=== PATIENT | male | born 2000 | race Caucasian/White ===

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

== ENCOUNTER 2022-03-09 13:33 | Observation (INO) | payer MEDICAID, SELFPAY ==
[2022-03-09 13:34] VITALS: BP 163/108; PULSE 108; RESP 16; TEMP 36.5; O2SAT 97; BMI 26.0
--- NOTE | 2022-03-09 14:08 | EKG12_ITS ---
Test Reason : HEROIN Blood Pressure : / mmHG Vent. Rate : 111 BPM Atrial Rate : 111 BPM P-R Int : 130 ms QRS Dur : 084 ms QT Int : 334 ms P-R-T Axes : 054 037 046 degrees QTc Int : 454 ms Sinus tachycardia Otherwise normal ECG Confirmed by RAKAN VANG, CARO ([id number]), design editor KIKI CRISOSTOMO ([id number]) on 03/11/2022 11:02:25 A M Referred By: Confirmed By:SENG BLEDSOE MD
--- NOTE | 2022-03-09 14:36 | EDS_ITS ---
HPI History of Present Illness Chief Complaint: Substance Abuse Detail of Chief Complaint: Open it use and dependency Informant: patient Onset/Context/Timing Onset: Month(s) (6 months) Context: Sudden Onset Timing: Continuous Quality: Approximately half a gram of heroin snorted daily and for Oxy tablets Current Severity: No withdrawal symptoms presently Worsened by: Abstaining and attempting to stop on his own Relieved by: Resuming Associated Symptoms Associated Symptoms: Patient does report shakes feeling warm tachycardia nausea when he abstains Narrative Narrative: Patient is a 21-year-old male 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 He is performance at work has been hampered by his drug use. He does admit to taking fake Oxy blue pills and heroin. He believes the oxycodone ta blets are fentanyl. He snorts. He does not inject. He states he is never injected. He states he does not have hepatitis and has no risk factors for HIV. Presently has no symptoms. Prior similar symptoms: Yes Recent Illness/Hospitalization: No PFSH PFSH Medical History Anxiety Drug use Home Medications NK 03/09/22 [History Last Taken Unknown] Allergy/AdvReac Type Severity Reaction Status Date / Time No Known Allergies Allergy Verified 03/09/22 13:33 Surgical History no surgical history no surgical history Social History (Updated 03/09/22 @ 14:[address] Parag Pierre MD) household members: other Smoking Status: Current every day smoker tobacco type: cigarettes and e- cigarettes alcohol intake: current alcohol intake frequency: holidays/special occasions only substance use type: heroin and opiates ROS ROS ED Constitutional Constitutional ED: Denies chills, fever(s), subjective, sweats or weight loss Eyes Eyes: Denies blurry vision, change in vision or diplopia ENT ENT ED: Denies ear pain, rhinorrhea or sore throat Cardiovascular Cardiovascular: Denies chest pain, orthopnea, palpitations, paroxysmal nocturnal dyspnea or racing heartbeat Respiratory/Chest Respiratory/Chest: Denies cough, dyspnea, dyspnea on exertion, orthopnea or paroxysmal nocturnal dyspnea Gastrointestinal Gastrointestinal: Denies abdominal pain, diarrhea, nausea or vomiting Genitourinary Genitourinary ED: Denies dysuria, hematuria or urinary frequency Musculoskeletal Musculoskeletal: Denies arthralgias, back pain, myalgias or neck pain Integumentary Denies rash Neurologic Neurologic: Denies headache(s) or weakness Psychiatric Psychiatric: Reports anxiety; Denies depression or suicidal thoughts Endocrine Endocrinology: Denies polydipsia, polyphagia or polyuria EXAM Physical Exam Const Vital Signs: 03/09/22 13:34 Temperature 97.7 F L Temperature Source Temporal Pulse Rate 108 H Respiratory Rate 16 Blood Pressure 163/108 H Blood Pressure Mean 126 Pulse Ox 97 Oxygen Delivery Method Room Air Positive well nourished and well developed General Appearance ED: well developed and NAD; Negative for cyanotic, diaphoretic or pallor HEENT Reports TM's clear and moist mucous membranes Negative for trauma or tenderness Tympanic Membrane ED: Yes TM's clear Eyes PERRL and EOMs intact bilaterally General Eye ED: Negative for pale conjunctiva or scleral icterus Neck no lymphadenopathy, supple and no JVD Chest Wall inspection of chest normal Resp normal respiratory effort and clear to auscultation bilaterally Cardio regular rhythm, S1 normal heart sound, S2 normal heart sound and no murmurs Rate: tachycardic GI normal to inspection, nondistended, normoactive bowel sounds, non-tender and non-distended Palpation: soft Back/Spine no CVA tenderness Cervical Spine: Negative for cervical spine tenderness Thoracic Spine / Upper Back: Negative for thoracic spinal tenderness or paraspinal muscle tenderness Extremity normal to inspection General Extremety ED: Negative for edema or tenderness General Extremity: Negative for edema Neuro oriented x3, CN's II-XII intact bilaterally and no sensory deficits noted Sensorium / Orientation: alert Motor Exam: strength 5/5 throughout Psych mental status grossly normal Skin no rashes or lesions noted, no wounds and skin turgor normal General Skin Exam: Negative for jaundice or pallor MDM MDM MDM Narrative Medical decision making narrative: Patient has opiate dependency. He is seeking medical treatment since he is unable to discontinue on his own. Will obtain appropriate test for admission and contact hospitalist. Lab Data Labs: Laboratory Results - last 24 hr 03/09/22 03/09/22 03/09/22 14:51 14:51 14:51 WBC 6.5 RBC 5.19 Hgb 15.2 Hct 44.4 MCV 85.5 MCH 29.3 MCHC 34.2 RDW Std Deviation 35.6 RDW Coeff of Chelsi 11.4 L Plt Count 230 MPV 10.5 Immature Gran % (Auto) 0.200 Neut % (Auto) 62.9 Lymph % (Auto) 27.7 Archuleta % (Auto) 5.4 Eos % (Auto) 3.3 Baso % (Auto) 0.5 Absolute Neuts (auto) 4.1 Absolute Lymphs (auto) 1.79 Nucleated RBC % 0 Sodium 139 Potassium 3.9 Chloride 104 Carbon Dioxide 29.0 Anion Gap 6 BUN 13 Creatinine 0.94 Estim Creat Clear Calc 118.18 Est GFR (MDRD) Af Amer 132 Est GFR (MDRD) Non-Af 109 BUN/Creatinine Ratio 13.8 Glucose 107 H Calcium 9.3 Total Bilirubin 0.30 AST 8 L ALT 23 Alkaline Phosphatase 73 Total Protein 7.5 Albumin 4.1 Globulin 3.4 Albumin/Globulin Ratio 1.2 Urine Opiates Screen POSITIVE H Urine Methadone Screen NEGATIVE Ur Barbiturates Screen NEGATIVE Ur Phencyclidine Scrn NEGATIVE Ur Amphetamines Screen NEGATIVE MDMA (Ecstasy) Screen POSITIVE H U Benzodiazepines Scrn NEGATIVE Urine Cocaine Screen NEGATIVE U Cannabinoids Screen NEGATIVE Ur Drug Screen Comment EKG Initial EKG: Attestation: I personally reviewed and interpreted this EKG as follows: Interpretation: Sinus Tachycardia (111 otherwise unremarkable. AL intervals 130 ms. Cures duration 84 ms. QT duration 3 and 34 ms. Marbury is normal.) Discharge Plan Dx/Rx/DC Orders Clinical Impression: Use of nonprescription opiate drugs, Opiate dependence Disposition Disposition: Acute Care Hospital [facility]
[2022-03-09 15:00] LABS: Absolute Lymphocyte Count 1.79 X10^3/uL (0.83-4.51); Absolute Neutrophil Count 4.1 X10^3/uL (2.0-7.7); Basophil# 0.03 X10^3/uL; Basophil% 0.5 % (0-1); Eosinophil# 0.21 X10^3/uL; Eosinophils% 3.3 % (0-5); Hematocrit 44.4 % (40-54); Hemoglobin 15.2 g/dL (13.0-16.5); Lymphocyte # 1.79 X10^3/ul (0.83-4.51); Lymphocyte % 27.7 % (19-41); Mean Corp Hgb Conc 34.2 g/dL (32-36); Mean Corpuscular Hgb 29.3 pg (27.0-32.0); Mean Corpuscular Volume 85.5 fL (80-94); Mean Platelet Vol. 10.5 fl (6.2-12.0); Monocyte# 0.35 X10^3/uL; Monocyte% 5.4 % (0-10); NRBC Flagged by Analyzer 0 % (0-5); Neutrophil # 4.07 X10^3/uL (2.7-7.7); Neutrophil % 62.9 % (47-70); Platelet Count 230 K/mm3 (150-450); RBC Distribution Width CV 11.4 % (11.6-14.6); RBC Distribution Width SD 35.6 fl (35.1-43.9); Red Blood Count 5.19 M/mm3 (4.6-6.2); White Blood Count 6.5 K/mm3 (4.4-11.0)
[2022-03-09 15:21] LABS: Amphetamine Urine VISTA NEGATIVE (<1000 ng/mL); Barbiturate Urine VISTA NEGATIVE (< 200 ng/mL); Benzodiazepine Urine VISTA NEGATIVE (< 200 ng/mL); Cocaine Urine VISTA NEGATIVE (< 300 ng/mL); Ecstacy Urine VISTA POSITIVE (< 500 ng/mL); Methadone Urine VISTA NEGATIVE (< 300 ng/mL); PCP Urine VISTA NEGATIVE (< 25 ng/mL); THC Urine VISTA NEGATIVE (< 50 ng/mL); Vista UDS pH Range 4
[2022-03-09 15:23] LABS: ALB/GLOB Ratio 1.2 RATIO (0.9-2.4); AST(SGOT) 8 U/L (15-37); Alanine Aminotransfer ALT/SGPT 23 U/L (16-61); Albumin, Serum 4.1 g/dL (3.2-5.0); Alkaline Phosphatase 73 U/L (45-117); Anion Gap 6 (5-15); BUN 13 mg/dL (7-18); BUN/Creat Ratio 13.8 RATIO (10-20); Calcium,Total 9.3 mg/dL (8.5-10.1); Chloride 104 mmol/L (98-107); Creatinine, Serum 0.94 mg/dL (0.70-1.30); EST Glomerular Filtration Rate 109 mL/min (>60); Est Glom Filt Rate - Afr Amer 132 mL/min (>60); Estimated Creatinine Clearance 118.18 ml/min; Globulin 3.4 g/dL (2.2-4.2); Glucose 107 mg/dL (74-106); Potassium 3.9 mmol/L (3.5-5.1); Protein, Total 7.5 g/dL (6.4-8.2); Sodium Level 139 mmol/L (136-145)
--- NOTE | 2022-03-09 15:28 | HP.PCM.HOS_ITS ---
HPI - General General Date of Admission: 03/09/22 Date of Service: 03/09/22 Chief Complaint: Acute Opiate withdrawal HPI Narrative The patient is a 21 y/o M w/ PMHx: Anxiety and Depression, Tobacco use, Polysubstance abuse including heroin and fentanyl starting ~ 6-7 months prior to current presentation noting that he primarily snorts who presents to the [facility] ED on 03/09/22 w/ noted acute opiate withdrawal onset starting starting this af ternoon following last dose ~ 5 hours prior to ED evaluation with abdominal cramping, generalized body aches, fatigue and restlessness. Patient interested in attaining clean status he notes prior to anything escalating and notes he has never been in detox prior. Work-up in the ED included T97.7, heart rate 108, BP 163/108, respiratory rate 16, 97% on room air, CBC with WC 6.5, 15.2, platelet 230 without marked shift, CMP with glucose 107 otherwise not marked appearing, UDS with positive opiates and MDMA, ethyl alcohol less than 3. [facility] Medical History Anxiety and depression Polysubstance abuse Vapes nicotine containing substance Home Medications NK 03/09/22 [History Last Taken Unknown] Allergy/AdvReac Type Severity Reaction Status Date / Time No Known Allergies Allergy Verified 03/09/22 13:33 Family History (Updated 03/09/22 @ 17:[address] Shavon Drummond MD) Mother Thyroid disorder Father Hypertension HLD (hyperlipidemia) Surgical History (Updated 03/09/22 @ 17:[address] Shavon Drummond MD) No history of previous surgery Surgical History no surgical history Social History (Updated 03/09/22 @ 14:[address] Parag Pierre MD) household members: other Smoking Status: Current every day smoker tobacco type: cigarettes and e- cigarettes alcohol intake: current alcohol intake frequency: holidays/special occasions only substance use type: heroin and opiates ROS ROS Narrative Admission Review of Systems: CONSTITUTIONAL: No weight loss, fever, chills, + weakness or fatigue. HEENT: + Mild rhinorrhea Eyes: No visual loss, blurred vision, double vision or yellow sclerae. Ears, Nose, Throat: No hearing loss, sneezing, sore throat. SKIN: No rash or itching, lesions, wounds. CARDIOVASCULAR: No chest pain, chest pressure or chest discomfort, palpitations, edema, orthopnea, syncopal events. RESPIRATORY: No shortness of breath, cough or sputum, wheezing, hemoptysis. GASTROINTESTINAL: + Anorexia, mild abdominal cramping, No nausea, vomiting, diarrhea, melena, BRBPR. GENITOURINARY: No dysuria, frequency, urgency or retention. NEUROLOGICAL: No headache, dizziness, syncope, paralysis, ataxia, numbness or tingling in the extremities, focal weakness, change in bowel or bladder control, seizure. MUSCULOSKELETAL: + muscle, back pain, joint pain or stiffness. HEMATOLOGIC: No anemia, bleeding or bruising. LYMPHATICS: No enlarged nodes. No history of splenectomy. PSYCHIATRIC: + history of depression or anxiety. ENDOCRINOLOGIC: No reports of sweating, cold or heat intolerance. No polyuria or polydipsia. ALLERGIES: No history of asthma, hives, eczema or rhinitis. Vital Signs Vital Signs Vital Signs: 03/09/22 13:34 Temperature 97.7 F L Temperature Source Temporal Pulse Rate 108 H Respiratory Rate 16 Blood Pressure 163/108 H Blood Pressure Mean 126 Pulse Ox 97 Oxygen Delivery Method Room Air Weight Weight: 166 lb 7.184 oz Body Mass Index (BMI) 26.0 Physical Exam Narrative Physical Examination: General: Awake, alert, oriented x 3 and cooperative, seated upright in the ED bed, fatigued and restless. Skin: Normal color, normal turgor, no icterus, no cyanosis. HEENT: AT/NC, EOMI, PERRLA, mildly dry MM, no carotid bruits or JVD noted. Lungs: Mildly diminished, greater bases, appropriate effort no rales, ronchi or wheezing. Heart: Currently regular rate and rhythm; no gallop, rub audible. Abdomen: Soft, mild generalized discomfort but no rebound or guarding ND, hyperactive BS, no HSM. Extremities: No cyanosis, clubbing, or edema. Neurological: Patient awake, alert, oriented x 3, cognitive function intact; pupils equally reactive to light and accommodation, cranial nerves II-XII morris ssly normal, moving all 4 extremities, no focal deficits, strength preserved, mildly restless and anxious. Psychiatric: Affect appears mildly restless and anxious no acute evidence of depressive feelings but does admit to history. Results Lab / Micro Data Result Diagrams: 03/09/22 14:51 03/09/22 14:51 Labs: Laboratory Results - last 24 hr 03/09/22 14:51: WBC 6.5, RBC 5.19, Hgb 15.2, Hct 44.4, MCV 85.5, MCH 29.3, MCHC 34.2, RDW Std Deviation 35.6, RDW Coeff of Chelsi 11.4 L, Plt Count 230, MPV 10.5, Immature Gran % (Auto) 0.200, Neut % (Auto) 62.9, Lymph % (Auto) 27.7, [place] % ( Auto) 5.4, Eos % (Auto) 3.3, Baso % (Auto) 0.5, Absolute Neuts (auto) 4.1, Absolute Lymphs (auto) 1.79, Nucleated RBC % 0 03/09/22 14:51: Sodium 139, Potassium 3.9, Chloride 104, Carbon Dioxide 29.0, Anion Gap 6, BUN 13, Creatinine 0.94, Estim Creat Clear Calc 118.18, Est GFR (MDRD) Af Amer 132, Est GFR (MDRD) Non-Af 109, BUN/Creatinine Ratio 13.8, Glucose 107 H, Calcium 9.3, Total Bilirubin 0.30, AST 8 L, ALT 23, Alkaline Phos phatase 73, Total Protein 7.5, Albumin 4.1, Globulin 3.4, Albumin/Globulin Ratio 1.2 03/09/22 14:51: Urine Opiates Screen POSITIVE H, Urine Methadone Screen NEGATIVE, Ur Barbiturates Screen NEGATIVE, Ur Phencyclidine Scrn NEGATIVE, Ur Amphetamines Screen NEGATIVE, MDMA (Ecstasy) Screen POSITIVE H, U Benzodiazepines Scrn NEGATIVE, Urine Cocaine Screen NEGATIVE, U Cannabinoids Screen NEGATIVE, Ur Drug Screen Comment Assessment & Plan Assessment/Plan (1) Opiate withdrawal: PLAN: The patient is a 21 y/o M w/ PMHx: Anxiety and Depression, Tobacco use, Polysubstance abuse including heroin and fentanyl starting ~ 6-7 months prior to current presentation noting that he primarily snorts who presents to the [facility] ED on 03/09/22 w/ noted acute opiate withdrawal onset starting starting this afternoon. #1. Acute Opiate Withdrawal: Will admit to [place], routine labs including CBC, CMP, urine for drug screen obtained in the ED and pending upon evaluation, will initiate and continue on protocol with tapering course of Subutex, as needed tylenol, ibuprofen, bowel regimen, gabapentin, Bentyl, Vistaril, methocarbamol, clonidine, PRN nightly trazodone for insomnia, IV fluids, IV antiemetics. Once patient clinically improved and completion of taper nearing will plan consultation with case management for transition to next level of rehabilitation care. #2. Polysubstance Abuse: Given history to be cautious will obtain HIV and hepatitis panel however given current usage history, patient currently not candidate for hep C treatment currently as needs to be clean, sober x 6 months, documented attendance NA or AA meetings, counseling and ongoing negative drug screens. #3. Tobacco Abuse: Encouraged cessation, inpatient consultation per RT, NR if desired. #4. DVT prophylaxis: Low risk, encourage ambulation. Charges/Coding Visit Charges Inpatient E&M: 18543 Init Hosp L2
[2022-03-09 15:46] VITALS: BP 139/87; PULSE 82; RESP 16; TEMP 36.6; O2SAT 99
[2022-03-09 15:57] LABS: Alcohol, Blood (Medical)-Serum < 3.0 mg/dL
[2022-03-09 17:56] VITALS: BMI 26.0
[2022-03-09 18:03] VITALS: BP 136/93; PULSE 69; RESP 18; TEMP 36.7; O2SAT 100
[2022-03-09 18:07] VITALS: O2SAT 100
[2022-03-09 22:18] LABS: HIV - WCH Non-Reactive (Nonreactive)
[2022-03-09] MEDS: Buprenorphine HCl 2 MG TAB.SUBL SL (22:47)
[2022-03-09] MEDS: traZODone 100 MG Tablet PO (22:48)
[2022-03-10] MEDS: Dicyclomine 10 MG Capsule 20 MG PO ×3 (00:45→16:06)
[2022-03-10] MEDS: cloNIDine HCl 0.1 MG Tablet PO ×2 (00:45→09:33)
[2022-03-10] MEDS: Loperamide 2 MG Capsule PO (00:45)
[2022-03-10] MEDS: Methocarbamol 750 MG Tablet 1500 MG PO ×4 (00:46→22:39)
[2022-03-10] MEDS: Acetaminophen 325 MG Tablet 650 MG PO (00:46)
[2022-03-10] MEDS: Gabapentin 300 MG Capsule PO ×3 (01:14→22:38)
[2022-03-10] MEDS: hydrOXYzine PAM 25 MG Capsule 50 MG PO ×3 (01:51→18:10)
[2022-03-10] MEDS: Ibuprofen 600 MG Tablet PO (01:51)
[2022-03-10] MEDS: Buprenorphine HCl 2 MG TAB.SUBL SL ×3 (06:14→22:38)
--- NOTE | 2022-03-10 07:16 | PCM.PN.HOSP ---
Subjective Subjective Patient is a 21-year-old gentleman with history of polysubstance abuse including heroin and fentanyl admitted with acute opioid withd Objective Data Objective Data Vital Signs: Vital Signs Temp Pulse Resp BP Pulse Ox 98.1 F 69 18 136/93 H 100 03/09/22 18:03 03/09/22 18:03 03/09/22 18:03 03/09/22 18:03 03/09/22 18:07 Oxygen Delivery Method Room Air Weight: 75.5 kg Body Mass Index (BMI) 26.0 Lab / Micro Data Result Diagrams: 03/09/22 14:51 03/09/22 14:51 Labs: Laboratory Results - last 24 hr 03/09/22 14:51: WBC 6.5, RBC 5.19, Hgb 15.2, Hct 44.4, MCV 85.5, MCH 29.3, MCHC 34.2, RDW Std Deviation 35.6, RDW Coeff of Chelsi 11.4 L, Plt Count 230, MPV 10.5, Immature Gran % (Auto) 0.200, Neut % (Auto) 62.9, Lymph % (Auto) 27.7, [place] % (Auto) 5.4, Eos % (Auto) 3.3, Baso % (Auto) 0.5, Absolute Neuts (auto) 4.1, Absolute Lymphs (auto) 1.79, Nucleated RBC % 0 03/09/22 14:51: Sodium 139, Potassium 3.9, Chloride 104, Carbon Dioxide 29.0, Anion Gap 6, BUN 13, Creatinine 0.94, Estim Creat Clear Calc 118.18, Est GFR (MDRD) Af Amer 132, Est GFR (MDRD) Non-Af 109, BUN/Creatinine Ratio 13.8, Glucose 107 H, Calcium 9.3, Total Bilirubin 0.30, AST 8 L, ALT 23, Alkaline Phosphatase 73, Total Protein 7.5, Albumin 4.1, Globulin 3.4, Albumin/Globulin Ratio 1.2 03/09/22 14:51: Ethyl Alcohol < 3.0 03/09/22 14:51: Urine Opiates Screen POSITIVE H, Urine Methadone Screen NEGATIVE, Ur Barbiturates Screen NEGATIVE, Ur Phencyclidine Scrn NEGATIVE, Ur Amphetamines Screen NEGATIVE, MDMA (Ecstasy) Screen POSITIVE H, U Benzodiazepines Scrn NEGATIVE, Urine Cocaine Screen NEGATIVE, U Cannabinoids Screen NEGATIVE, Ur Drug Screen Comment 03/09/22 14:51: HIV 1&2 Antibody Non-Reactive Physical Exam Narrative GENERAL: cooperative HEENT: Atraumatic; EYES; Anicteric, Normal Conjunctiva NECK; supple, normal thyroid, RESPIRATORY: Diminished to auscultation CARDIOVASCULAR: Regular S1 S2, GI: soft, normoactive bowel sounds, : No Renal angle tenderness; EXTREMITIES: No edema, no clubbing, MUSCULOSKELETAL: no muscle wasting NEURO: Awake; no lateralizing signs. SKIN: No Rash PSYCH; Flat affect Assessment & Plan Assessment/Plan (1) Opiate withdrawal: PLAN: Patient is a 21-year-old gentleman with history of polysubstance abuse including heroin and fentanyl admitted with acute opioid withdrawal 1. Acute opiate withdrawal ? Patient has been admitted to regular nursing floor currently undergoing medical stabilization using Subutex taper 2. Polysubstance abuse ? Counseled on cessation 3. Tobacco dependence - Counseled on cessation, offered nicotine patch for tobacco cravings 4. DVT prophylaxis ? Low risk did encourage early ambulation Charges/Coding Visit Charges Inpatient E&M: 72112 Subs Hosp L2
[2022-03-10 09:16] VITALS: BP 138/94; PULSE 61; RESP 18; TEMP 36.9; O2SAT 100
[2022-03-10 13:57] VITALS: BP 125/80; PULSE 69; RESP 16; TEMP 36.7; O2SAT 100
--- NOTE | 2022-03-10 14:00 | ADDICTION ---
This technical proposal writer met with PT to conduct ASAM, MSE, AUDIT, DUDIT assessments and to plan for d/c. PT A+Ox4 and participated actively. All assessments completed, faxed to [facility] and placed in PT's chart. PT plans to f/u with individual counselor at [facility] for follow-up counseling services. PT did not indicate a need for transportation post d/c from [facility].
[2022-03-10 16:04] VITALS: BP 129/84; PULSE 75; RESP 16; TEMP 37; O2SAT 96
[2022-03-10 22:28] VITALS: BP 121/73; PULSE 76; RESP 16; TEMP 36.9; O2SAT 96
[2022-03-10] MEDS: traZODone 100 MG Tablet PO (22:38)
[2022-03-11 05:25] VITALS: BP 106/50; PULSE 59; RESP 14; TEMP 36.9; O2SAT 96
[2022-03-11] MEDS: hydrOXYzine PAM 25 MG Capsule 50 MG PO (05:31)
[2022-03-11] MEDS: Methocarbamol 750 MG Tablet 1500 MG PO (05:31)
[2022-03-11] MEDS: Buprenorphine HCl 2 MG TAB.SUBL SL (05:31)
--- NOTE | 2022-03-11 07:34 | PCM.PN.HOSP ---
Subjective Subjective Patient seen reports muscle aches. Remains on Subutex taper Objective Data Objective Data Vital Signs: Vital Signs Temp Pulse Resp BP Pulse Ox 98.4 F 59 L 14 106/50 L 96 03/11/22 05:25 03/11/22 05:25 03/11/22 05:25 03/11/22 05:25 03/11/22 05:25 Oxygen Delivery Method Room Air Weight: 75.5 kg Body Mass Index (BMI) 26.0 Lab / Micro Data Result Diagrams: 03/09/22 14:51 03/09/22 14:51 Physical Exam Narrative GENERAL: cooperative HEENT: Atraumatic; EYES; Anicteric, Normal Conjunctiva NECK; supple, normal thyroid, RESPIRATORY: Diminished to auscultation CARDIOVASCULAR: Regular S1 S2, GI: soft, normoactive bowel sounds, : No Renal angle tenderness; EXTREMITIES: No edema, no clubbing, MUSCULOSKELETAL: no muscle wasting NEURO: Awake; no lateralizing signs. SKIN: No Rash PSYCH; Flat affect Assessment & Plan Assessment/Plan (1) Opiate withdrawal: PLAN: Patient is a 21-year-old gentleman with history of polysubstance abuse including heroin and fentanyl admitted with acute opioid withdrawal 1. Acute opiate withdrawal ? Patient has been admitted to regular nursing floor currently undergoing medical stabilization using Subutex taper ? 03/11/2022; patient reports muscle aches has tolerated the Subutex taper well so far. Patient has also been seen in consultation by [facility] 2. Polysubstance abuse ? Counseled on cessation 3. Tobacco dependence - Counseled on cessation, offered nicotine patch for tobacco cravings 4. DVT prophylaxis ? Low risk did encourage early ambulation Charges/Coding Visit Charges Inpatient E&M: 32088 Subs Hosp L2
[2022-03-11 09:27] VITALS: BP 129/72; PULSE 66; RESP 16; TEMP 37.2; O2SAT 98
[2022-03-11] MEDS: Gabapentin 300 MG Capsule PO (09:34)
[2022-03-11] MEDS: cloNIDine HCl 0.1 MG Tablet PO (09:34)
[2022-03-11 13:50] VITALS: O2SAT 98
--- NOTE | 2022-03-11 14:13 | PCM.DC.SUM ---
Providers Date of Admission: 03/09/22 Primary Care Physician: MYA Hawthorne Reason For Visit: ACUTE OPIATE WITHDRAWAL Diagnosis Discharge Diagnosis (1) Opiate withdrawal: Status: Acute Code(s): F11.23 - Opioid dependence with withdrawal Medications at Discharge Home Medications NK 03/09/22 Hospital Course Summary of Care Provided Minutes Spent on Discharge: 25 Hospital Course: Patient is a 21-year-old gentleman with history of polysubstance abuse including heroin and fentanyl admitted with acute opioid withdrawal 1. Acute opiate withdrawal ? Patient has been admitted to regular nursing floor currently undergoing medical stabilization using Subutex taper ? 03/11/2022; patient reports muscle aches has tolerated the Subutex taper well so far. Patient has also been seen in consultation by [facility] -Patient left AGAINST MEDICAL ADVICE 2 days into his admission. 2. Polysubstance abuse ? Counseled on cessation 3. Tobacco dependence - Counseled on cessation, offered nicotine patch for tobacco cravings 4. DVT prophylaxis ? Low risk did encourage early ambulation Physical Exam Narrative GENERAL: cooperative HEENT: Atraumatic; EYES; Anicteric, Normal Conjunctiva NECK; supple, normal thyroid, RESPIRATORY: Diminished to auscultation CARDIOVASCULAR: Regular S1 S2, GI: soft, normoactive bowel sounds, : No Renal angle tenderness; EXTREMITIES: No edema, no clubbing, MUSCULOSKELETAL: no muscle wasting NEURO: Awake; no lateralizing signs. SKIN: No Rash PSYCH; Flat affect Weight / BMI Weight Weight: 75.5 kg Body Mass Index (BMI) 26.0 ABG / Lab / Microbiology Data Result Diagrams: 03/09/22 14:51 03/09/22 14:51 D/C Instructions Discharge Diet: No restrictions Meaningful Use Info Meaningful Use Diagnoses (Choose all that apply): None applicable Discharge Plan Admission Admit Date/Time: 03/09/22 15:29 Attending Provider: Lc Doherty Primary Care Provider: Uli Montero NP Consulting Providers: Shavon Drummond Discharge Orders/Prescriptions Prescriptions: No Action NK RF: 0 Referrals / Follow Up: Uli Montero NP, CORRECTIONAL CASE MANAGER-C [Primary Care Provider] - In 1 Week Disposition Disposition (needs filled in before D/C Order can be placed): Against Medical Advice Charges/Coding Visit Charges Inpatient E&M: 75983 Disch Hosp
[2022-03-12 08:10] LABS: HEPATITIS B SURFACE AG Negative (Negative); Hepatitis B Core Ab Total Negative (Negative); Hepatitis C Ab <0.1 s/co ratio (0.0-0.9)
[2022-03-12 13:11] LABS: Hep B Surface Antibodies Non Reactive (.)
== END 2022-03-11 12:18 | disposition left against medical advice (07) | DRG 770 ==
LOC: ED 14:42 → MS3 03-10 07:07
PROVIDERS: Admitting Provider Family Medicine; Emergency Provider Emergency Medicine; PCP Nurse Practitioner Primary Care; Visit Provider Internal Medicine
DX: F11.23 Opioid dependence with withdrawal (principal); F17.210 Nicotine dependence, cigarettes, uncomplicated; F17.290 Nicotine dependence, other tobacco product, uncomplicated
CPT/HCPCS: 36415; 80053; 80307; 82077; 85025; 86703; 86704; 86705; 86706; 86707; 86803; 87340; 87350; 93005; 99283; H0012

== ENCOUNTER 2023-01-05 12:48 | Inpatient (IN) | payer OTHER, SELFPAY ==
[2023-01-05] VITALS (8 sets, daily range): BP systolic 122–165; BP diastolic 64–121; PULSE 83–101; RESP 16–19; TEMP 36.8–37.1; O2SAT 95–100; BMI 24.7
--- NOTE | 2023-01-05 13:12 | EX.ED.SAOD ---
HPI <DANIS Spence - Last Filed: 01/05/23 18:02> History of Present Illness Chief Complaint: Substance Abuse Narrative Narrative: Patient presenting today wanting to detox from fentanyl. He states he last used yesterday. He reports that he has been using around 1-2 grams daily for the past year and a half. He states he primarily snorts the fentanyl and has only injected it twice. He denies any other substance use but states he does smoke cigarettes regularly. Patient states he did try to detox around 1 year ago but did not complete the detox and did not follow-up with any outpatient programs. He states this time he cannot take feeling dependent on fentanyl anymore and would really like to be clean. He reports he currently feels hot and cold, anxious, has intermittent nausea, and is nervous. PFSH <DANIS Spence - Last Filed: 01/05/23 18:02> [facility] Medical History Anxiety and depression Polysubstance abuse Vapes nicotine containing substance Home Medications NK 03/09/22 [History Last Taken Unknown] Allergy/AdvReac Type Severity Reaction Status Date / Time No Known Allergies Allergy Verified 01/05/23 13:05 Family History Mother Thyroid disorder Father Hypertension HLD (hyperlipidemia) Surgical History No history of previous surgery Social History household members: other Smoking Status: Current every day smoker tobacco type: cigarettes and e-cigarettes alcohol intake: current alcohol intake frequency: holidays/special occasions only substance use type: heroin and opiates ROS <DANIS Spence - Last Filed: 01/05/23 18:02> ROS ED Constitutional Constitutional ED: Denies chills, fever(s) or sweats Eyes Eyes: Denies blurry vision or diplopia Cardiovascular Cardiovascular: Denies chest pain or palpitations Respiratory/Chest Respiratory/Chest: Denies cough, dyspnea, tachypnea or wheezing Gastrointestinal Gastrointestinal: Reports nausea; Denies abdominal pain, constipation, diarrhea or vomiting Genitourinary Genitourinary ED: Denies dysuria, hematuria or urinary urgency Musculoskeletal Musculoskeletal: Denies arthralgias, back pain, myalgias or neck pain Integumentary Denies abscess, Abrasions or rash Neurologic Neurologic: Denies confusion, dizziness or paresthesias Psychiatric Psychiatric: Denies anxiety, depression, suicidal ideation or suicidal thoughts Allergic/Immunologic Allergic/Immunologic ED: Denies lip swelling, mouth swelling or urticaria EXAM <DANIS Spence - Last Filed: 01/05/23 18:02> Physical Exam Const Vital Signs: 01/05/23 12:48 01/05/23 15:06 01/05/23 15:34 Temperature 98.2 F Temperature Source Temporal Pulse Rate 83 83 Respiratory Rate 18 16 18 Blood Pressure 165/121 H 122/74 H 143/69 H Blood Pressure Mean 135 90 93 Pulse Ox 95 98 98 Oxygen Delivery Method Room Air Room Air Room Air 01/05/23 15:45 01/05/23 16:01 Temperature 98.3 F Temperature Source Oral Pulse Rate 98 101 H Respiratory Rate 18 18 Blood Pressure 131/65 H 139/82 H Blood Pressure Mean 87 101 Pulse Ox 97 99 Oxygen Delivery Method Room Air Room Air Positive well nourished, well developed and no apparent distress General Appearance ED: well developed HEENT Reports normocephalic and head/scalp atraumatic Mouth ED: Yes moist mucous membranes normal Eyes PERRL and EOMs intact bilaterally Neck full ROM and supple Chest Wall inspection of chest normal Resp normal respiratory effort and clear to auscultation bilaterally Cardio regular rate and regular rhythm GI soft to palpation, non-tender, non-distended and no masses Back/Spine normal ROM and normal to inspection Extremity normal to inspection and full ROM Neuro oriented x3, CN's II-XII intact bilaterally, moves all extremities, no focal motor deficits and no sensory deficits noted Sensorium / Orientation: awake and alert Psych mental status grossly normal and thought process normal Skin no rashes or lesions noted and no wounds <Dr. Darrell Damon MD - Last Filed: 01/05/23 15:09> Physical Exam Const Vital Signs: 01/05/23 12:48 01/05/23 15:06 01/05/23 15:34 Temperature 98.2 F Temperature Source Temporal Pulse Rate 83 83 Respiratory Rate 18 16 18 Blood Pressure 165/121 H 122/74 H 143/69 H Blood Pressure Mean 135 90 93 Pulse Ox 95 98 98 Oxygen Delivery Method Room Air Room Air Room Air 01/05/23 15:45 01/05/23 16:01 Temperature 98.3 F Temperature Source Oral Pulse Rate 98 101 H Respiratory Rate 18 18 Blood Pressure 131/65 H 139/82 H Blood Pressure Mean 87 101 Pulse Ox 97 99 Oxygen Delivery Method Room Air Room Air [facility] <DANIS Spence - Last Filed: 01/05/23 18:02> [facility] Narrative Medical decision making narrative: Patient presenting today wanting to detox from fentanyl. He has been using for the past year and a half of daily. Denies polysubstance abuse aside from cigarette use. Currently is feeling chilled and hot, anxious, nauseous, nervous. He will be given Zofran. Patient has also been given tramadol due to his body aches. On repeat examination patient states he still having a lot of pain and has been given Toradol. He will be admitted to the hospital in stable condition for detox. Lab Data Labs: Laboratory Results - last 24 hr 01/05/23 01/05/23 01/05/23 13:11 13:11 13:11 WBC 7.9 RBC 5.50 Hgb 16.3 Hct 46.7 MCV 84.9 MCH 29.6 MCHC 34.9 RDW Std Deviation 35.8 RDW Coeff of Chelsi 11.8 Plt Count 300 MPV 10.2 Immature Gran % (Auto) 0.300 Neut % (Auto) 77.6 H Lymph % (Auto) 18.1 L [place] % (Auto) 3.1 Eos % (Auto) 0.6 Baso % (Auto) 0.3 Absolute Neuts (auto) 6.1 Absolute Lymphs (auto) 1.42 Nucleated RBC % 0 Sodium 137 Potassium 4.4 Chloride 104 Carbon Dioxide 25.0 Anion Gap 8 BUN 18 Creatinine 0.96 Estim Creat Clear Calc 114.76 Est GFR (MDRD) Af Amer 127 Est GFR (MDRD) Non-Af 105 BUN/Creatinine Ratio 18.7 Glucose 153 H Calcium 10.0 Urine Opiates Screen Urine Methadone Screen Ur Barbiturates Screen Ur Phencyclidine Scrn Ur Amphetamines Screen MDMA (Ecstasy) Screen U Benzodiazepines Scrn Urine Cocaine Screen U Cannabinoids Screen Ur Drug Screen Comment Ethyl Alcohol < 3.0 01/05/23 13:11 WBC RBC Hgb Hct MCV MCH MCHC RDW Std Deviation RDW Coeff of Chelsi Plt Count MPV Immature Gran % (Auto) Neut % (Auto) Lymph % (Auto) [place] % (Auto) Eos % (Auto) Baso % (Auto) Absolute Neuts (auto) Absolute Lymphs (auto) Nucleated RBC % Sodium Potassium Chloride Carbon Dioxide Anion Gap BUN Creatinine Estim Creat Clear Calc Est GFR (MDRD) Af Amer Est GFR (MDRD) Non-Af BUN/Creatinine Ratio Glucose Calcium Urine Opiates Screen POSITIVE H Urine Methadone Screen NEGATIVE Ur Barbiturates Screen NEGATIVE Ur Phencyclidine Scrn NEGATIVE Ur Amphetamines Screen NEGATIVE MDMA (Ecstasy) Screen POSITIVE H U Benzodiazepines Scrn NEGATIVE Urine Cocaine Screen NEGATIVE U Cannabinoids Screen NEGATIVE Ur Drug Screen Comment Ethyl Alcohol <Dr. Darrlel Damon MD - Last Filed: 01/05/23 15:09> [facility] Lab Data Attestation: I reviewed the patient's lab results. Labs: Laboratory Results - last 24 hr 01/05/23 01/05/23 01/05/23 13:11 13:11 13:11 WBC 7.9 RBC 5.50 Hgb 16.3 Hct 46.7 MCV 84.9 MCH 29.6 MCHC 34.9 RDW Std Deviation 35.8 RDW Coeff of Chelsi 11.8 Plt Count 300 MPV 10.2 Immature Gran % (Auto) 0.300 Neut % (Auto) 77.6 H Lymph % (Auto) 18.1 L [place] % (Auto) 3.1 Eos % (Auto) 0.6 Baso % (Auto) 0.3 Absolute Neuts (auto) 6.1 Absolute Lymphs (auto) 1.42 Nucleated RBC % 0 Sodium 137 Potassium 4.4 Chloride 104 Carbon Dioxide 25.0 Anion Gap 8 BUN 18 Creatinine 0.96 Estim Creat Clear Calc 114.76 Est GFR (MDRD) Af Amer 127 Est GFR (MDRD) Non-Af 105 BUN/Creatinine Ratio 18.7 Glucose 153 H Calcium 10.0 Urine Opiates Screen Urine Methadone Screen Ur Barbiturates Screen Ur Phencyclidine Scrn Ur Amphetamines Screen MDMA (Ecstasy) Screen U Benzodiazepines Scrn Urine Cocaine Screen U Cannabinoids Screen Ur Drug Screen Comment Ethyl Alcohol < 3.0 01/05/23 13:11 WBC RBC Hgb Hct MCV MCH MCHC RDW Std Deviation RDW Coeff of Chelsi Plt Count MPV Immature Gran % (Auto) Neut % (Auto) Lymph % (Auto) [place] % (Auto) Eos % (Auto) Baso % (Auto) Absolute Neuts (auto) Absolute Lymphs (auto) Nucleated RBC % Sodium Potassium Chloride Carbon Dioxide Anion Gap BUN Creatinine Estim Creat Clear Calc Est GFR (MDRD) Af Amer Est GFR (MDRD) Non-Af BUN/Creatinine Ratio Glucose Calcium Urine Opiates Screen POSITIVE H Urine Methadone Screen NEGATIVE Ur Barbiturates Screen NEGATIVE Ur Phencyclidine Scrn NEGATIVE Ur Amphetamines Screen NEGATIVE MDMA (Ecstasy) Screen POSITIVE H U Benzodiazepines Scrn NEGATIVE Urine Cocaine Screen NEGATIVE U Cannabinoids Screen NEGATIVE Ur Drug Screen Comment Ethyl Alcohol Treatment and Re-Evaluation Narrative: Seen and evaluated independently and in conjunction with physician household personal assistant. Agree with notes above unless documented otherwise. 1.5 years of daily opiate use. States he is feeling some mild withdrawal right now, last used earlier today. Mostly snorting fentanyl pills, rare IV use not recent. No recent illness, no fevers or chills, wants to get off drugs and asking for detox. NAD, normal neurologic exam not tremulous, abdomen benign. We will treat with tramadol and clonidine while discussing with hospitalist. Discharge Plan Dx/Rx/DC Orders Clinical Impression: Opiate dependence Disposition Disposition: Acute Care Hospital [facility]
[2023-01-05 13:19] LABS: Absolute Lymphocyte Count 1.42 X10^3/uL (0.83-4.51); Absolute Neutrophil Count 6.1 X10^3/uL (2.0-7.7); Basophil# 0.02 X10^3/uL; Basophil% 0.3 % (0-1); Eosinophil# 0.05 X10^3/uL; Eosinophils% 0.6 % (0-5); Hematocrit 46.7 % (40-54); Hemoglobin 16.3 g/dL (13.0-16.5); Lymphocyte # 1.42 X10^3/ul (0.83-4.51); Lymphocyte % 18.1 % (19-41); Mean Corp Hgb Conc 34.9 g/dL (32-36); Mean Corpuscular Hgb 29.6 pg (27.0-32.0); Mean Corpuscular Volume 84.9 fL (80-94); Mean Platelet Vol. 10.2 fl (6.2-12.0); Monocyte# 0.24 X10^3/uL; Monocyte% 3.1 % (0-10); NRBC Flagged by Analyzer 0 % (0-5); Neutrophil % 77.6 % (47-70); Platelet Count 300 K/mm3 (150-450); RBC Distribution Width CV 11.8 % (11.6-14.6); RBC Distribution Width SD 35.8 fl (35.1-43.9); White Blood Count 7.9 K/mm3 (4.4-11.0)
[2023-01-05 13:32] LABS: Anion Gap 8 (5-15); BUN 18 mg/dL (7-18); BUN/Creat Ratio 18.7 RATIO (10-20); Chloride 104 mmol/L (98-107); Creatinine, Serum 0.96 mg/dL (0.70-1.30); EST Glomerular Filtration Rate 105 mL/min (>60); Est Glom Filt Rate - Afr Amer 127 mL/min (>60); Estimated Creatinine Clearance 114.76 ml/min; Glucose 153 mg/dL (74-106); Potassium 4.4 mmol/L (3.5-5.1); Sodium Level 137 mmol/L (136-145)
[2023-01-05 13:35] LABS: Amphetamine Urine VISTA NEGATIVE (<1000 ng/mL); Barbiturate Urine VISTA NEGATIVE (< 200 ng/mL); Benzodiazepine Urine VISTA NEGATIVE (< 200 ng/mL); Cocaine Urine VISTA NEGATIVE (< 300 ng/mL); Ecstacy Urine VISTA POSITIVE (< 500 ng/mL); Methadone Urine VISTA NEGATIVE (< 300 ng/mL); PCP Urine VISTA NEGATIVE (< 25 ng/mL); THC Urine VISTA NEGATIVE (< 50 ng/mL); Vista UDS pH Range 6
--- NOTE | 2023-01-05 13:45 | CM.ED ---
Social Work Note Referral Source: case find Referral Reason: [facility] SW met with patient and introduced herself and role as [facility] SW. Patient laying in hospital bed and agreeable to speak with SW. SW inquired about patient's AOD use and knowledge of [facility] program. Patient reports daily fentanyl use of 1-2 grams for a year and a half. Patient reports he last used yesterday and has little knowledge of detox program. SW briefly reviewed rules including patient's personal belongings being locked up, no guests allowed and meeting with the addictions counselor for after care/ discharge planning. Patient voiced an understanding and reports no concerns or questions. Itzel Forman MSW, EMILIANO
[2023-01-05 13:48] LABS: Alcohol, Blood (Medical)-Serum < 3.0 mg/dL
[2023-01-05] MEDS: Ondansetron 8 MG Tablet 4 MG PO (13:49)
--- NOTE | 2023-01-05 15:12 | ED.RN ---
PER DR. DICKEY, OKAY TO GIVE PT SOMETHING TO DRINK.
[2023-01-05] MEDS: traMADol 50 MG Tablet PO (15:24)
--- NOTE | 2023-01-05 16:07 | PCM.HP.STD ---
HPI - General General Date of Admission: 01/05/23 Date of Service: 01/05/23 Chief Complaint: Opioid detox HPI Narrative STEFANIA TYLER, is a 22 M with a history of fentanyl and heroin use for 1.5 years primarily snorting most recently using 1 g to 2 g requested detox for opioids. Hospitalist consulted for admission for detox. Patient reports last use was yesterday evening and he has been having withdrawal symptoms since this morning including some vague abdominal pain, restless legs, achy all over and a runny nose as well as some alternating hot and cold. He is interested in detox. Reports he has had some constipation but denies any other complaints or medical problems. [facility] Medical History Anxiety and depression Polysubstance abuse Vapes nicotine containing substance Home Medications NK 03/09/22 [History Last Taken Unknown] Allergy/AdvReac Type Severity Reaction Status Date / Time No Known Allergies Allergy Verified 01/05/23 13:05 Family History Mother Thyroid disorder Father Hypertension HLD (hyperlipidemia) Surgical History No history of previous surgery Social History household members: other Smoking Status: Current every day smoker tobacco type: cigarettes and e-cigarettes alcohol intake: current alcohol intake frequency: holidays/special occasions only substance use type: heroin and opiates ROS ROS Narrative General: Hot and cold HENT: Denies headache, runny nose nose, denies sore throat EYES: Denies changes in vision Resp: Denies cough, denies shortness of breath Cardiac: Denies chest pain GI: Has had some abdominal pain, constipation, occasional nausea : Denies changes in urination Extremity: Denies swelling MSK: Denies weakness Neuro: Denies any numbness/tingling Heme: Denies any bleeding or bruising Skin: Denies rashes Psychiatric: No complaints voiced Vital Signs Vital Signs Vital Signs: 01/05/23 12:48 01/05/23 15:06 01/05/23 15:34 Temperature 98.2 F Temperature Source Temporal Pulse Rate 83 83 Respiratory Rate 18 16 18 Blood Pressure 165/121 H 122/74 H 143/69 H Blood Pressure Mean 135 90 93 Pulse Ox 95 98 98 Oxygen Delivery Method Room Air Room Air Room Air 01/05/23 15:45 01/05/23 16:01 Temperature 98.3 F Temperature Source Oral Pulse Rate 98 101 H Respiratory Rate 18 18 Blood Pressure 131/65 H 139/82 H Blood Pressure Mean 87 101 Pulse Ox 97 99 Oxygen Delivery Method Room Air Room Air Weight Weight: 71.668 kg Body Mass Index (BMI) 24.7 Physical Exam Narrative General: Alert, oriented, no apparent distress HEENT: Atraumatic, normocephalic Eyes: Anicteric, normal conjunctiva, extraocular movements grossly intact Neck: Supple Respiratory: Clear to auscultation bilaterally, normal respiratory effort Cardiovascular: Regular rate and rhythm GI: Soft, nontender, nondistended Extremities: No edema Musculoskeletal: Moving all extremities Neuro: No overt focal neurological deficits Skin: No rashes appreciated Psych: Cooperative Results Lab / Micro Data Result Diagrams: 01/05/23 13:11 01/05/23 13:11 Labs: Laboratory Results - last 24 hr 01/05/23 13:11: WBC 7.9, RBC 5.50, Hgb 16.3, Hct 46.7, MCV 84.9, MCH 29.6, MCHC 34.9, RDW Std Deviation 35.8, RDW Coeff of Chelsi 11.8, Plt Count 300, MPV 10.2, Immature Gran % (Auto) 0.300, Neut % (Auto) 77.6 H, Lymph % (Auto) 18.1 L, [place] % (Auto) 3.1, Eos % (Auto) 0.6, Baso % (Auto) 0.3, Absolute Neuts (auto) 6.1, Absolute Lymphs (auto) 1.42, Nucleated RBC % 0 01/05/23 13:11: Sodium 137, Potassium 4.4, Chloride 104, Carbon Dioxide 25.0, Anion Gap 8, BUN 18, Creatinine 0.96, Estim Creat Clear Calc 114.76, Est GFR (MDRD) Af Amer 127, Est GFR (MDRD) Non-Af 105, BUN/Creatinine Ratio 18.7, Glucose 153 H, Calcium 10.0 01/05/23 13:11: Ethyl Alcohol < 3.0 01/05/23 13:11: Urine Opiates Screen POSITIVE H, Urine Methadone Screen NEGATIVE, Ur Barbiturates Screen NEGATIVE, Ur Phencyclidine Scrn NEGATIVE, Ur Amphetamines Screen NEGATIVE, MDMA (Ecstasy) Screen POSITIVE H, U Benzodiazepines Scrn NEGATIVE, Urine Cocaine Screen NEGATIVE, U Cannabinoids Screen NEGATIVE, Ur Drug Screen Comment Assessment & Plan Assessment/Plan (1) Opiate dependence: PLAN: Plan #Acute opiate withdrawal - Subutex taper initiated - As needed Tylenol, ibuprofen, bowel regimen, gabapentin, Bentyl, Vistaril, methocarbamol, clonidine - As needed trazodone nightly - As needed antiemetics -Once patient begins to clinically improve will discuss further discharge planning #DVT ppx: Low risk, ambulatory Anastasia Antonio MD Charges/Coding Visit Charges Inpatient E&M: 79547 Init Hosp L2
[2023-01-05] MEDS: Ketorolac 15 MG/ML Vial IM (17:47)
[2023-01-05] MEDS: hydrOXYzine PAM 25 MG Capsule 50 MG PO (20:37)
[2023-01-05] MEDS: Buprenorphine HCl 2 MG TAB.SUBL 4 MG SL (20:37)
[2023-01-05] MEDS: traZODone 100 MG Tablet PO (20:38)
[2023-01-05] MEDS: Gabapentin 300 MG Capsule PO (22:41)
[2023-01-05] MEDS: Methocarbamol 750 MG Tablet 1500 MG PO (22:41)
[2023-01-06] MEDS: cloNIDine HCl 0.1 MG Tablet PO ×2 (00:01→12:29)
[2023-01-06] MEDS: Acetaminophen 325 MG Tablet 650 MG PO (00:02)
[2023-01-06] MEDS: hydrOXYzine PAM 25 MG Capsule 50 MG PO (04:01)
[2023-01-06] MEDS: Buprenorphine HCl 2 MG TAB.SUBL 4 MG SL ×2 (04:01→12:25)
[2023-01-06 04:07] VITALS: BP 141/89; PULSE 83; RESP 15; TEMP 37.1; O2SAT 98
--- NOTE | 2023-01-06 07:08 | PN.HOSP_ITS ---
Reason for Visit Reason for Visit: Diagnoses Opioid dependence, uncomplicated (01/05/23) Subjective Subjective Patient states that he had really bad restless legs last night and felt most comfortable laying on the floor. Discussed with nursing and there is no falls but the patient insisted on laying on the floor rather than his bed. Patient stoner d a pillow to rest his head however. Objective Data Objective Data Vital Signs: Vital Signs Temp Pulse Resp BP Pulse Ox O2 Del Method 37.1 C 83 15 141/89 H 98 Room Air 01/06/23 04:07 01/06/23 04:07 01/06/23 04:07 01/06/23 04:07 01/06/23 04:07 01/06/23 04:07 Oxygen Delivery Method Room Air Weight: 71.758 kg Body Mass Index (BMI) 24.7 Intake & Output: Intake and Output for Last 24 Hours 01/04/23 01/05/23 01/06/23 23:59 23:59 23:59 Intake Total 150 / 150 Balance 150 / 150 Lab / Micro Data Result Diagrams: 01/05/23 13:11 01/05/23 13:11 Labs: Laboratory Results - last 24 hr 01/05/23 13:11: WBC 7.9, RBC 5.50, Hgb 16.3, Hct 46.7, MCV 84.9, MCH 29.6, MCHC 34.9, RDW Std Deviation 35.8, RDW Coeff of Chelsi 11.8, Plt Count 300, MPV 10.2, Immature Gran % (Auto) 0.300, Neut % (Auto) 77.6 H, Lymph % (Auto) 18.1 L, [place] % (Auto) 3.1, Eos % (Auto) 0.6, Baso % (Auto) 0.3, Absolute Neuts (auto) 6.1, Absolute Lymphs (auto) 1.42, Nucleated RBC % 0 01/05/23 13:11: Sodium 137, Potassium 4.4, Chloride 104, Carbon Dioxide 25.0, Anion Gap 8, BUN 18, Creatinine 0.96, Estim Creat Clear Calc 114.76, Est GFR (MDRD) Af Amer 127, Est GFR (MDRD) Non-Af 105, BUN/Creatinine Ratio 18.7, Glucose 153 H, Calcium 10.0 01/05/23 13:11: Ethyl Alcohol < 3.0 03/16/23 13:11: Urine Opiates Screen POSITIVE H, Urine Methadone Screen NEGATIVE, Ur Barbiturates Screen NEGATIVE, Ur Phencyclidine Scrn NEGATIVE, Ur Amphetamines Screen NEGATIVE, MDMA (Ecstasy) Screen POSITIVE H, U Benzodiazepines Scrn NEGATIVE, Urine Cocaine Screen NEGATIVE, U Cannabinoids Screen NEGATIVE, Ur Drug Screen Comment Physical Exam Const Constitutional Narrative: Pleasant easily woke. Laying on the floor with blanket on his head on a pillow. HEENT head/scalp atraumatic Psych affect normal Assessment & Plan Assessment/Plan (1) Opiate withdrawal: PLAN: #Acute opiate withdrawal Last use with the . Subutex taper initiated - As needed Tylenol, ibuprofen, bowel regimen, gabapentin, Bentyl, Vistaril, methocarbamol, clonidine - As needed trazodone nightly - As needed antiemetics -Once patient begins to clinically improve will discuss further discharge planning Advised the patient to to laying in bed rather than on floor as the floor may not be very sterile and may pose an infection risk. PLAN: Plan DVT ppx: Low risk, ambulatory Charges/Coding Visit Charges Inpatient E&M: 04798 Subs Hosp L1
[2023-01-06 11:10] VITALS: BP 122/71; PULSE 77; RESP 16; TEMP 36.9; O2SAT 97
[2023-01-06] MEDS: Gabapentin 300 MG Capsule PO (12:28)
[2023-01-06] MEDS: Ondansetron 8 MG Tablet PO (12:32)
--- NOTE | 2023-01-06 12:49 | NURSING ---
pt talking to Jerica from [facility], for screening
[2023-01-06 17:00] VITALS: BP 131/83; PULSE 82; RESP 16; TEMP 36.9; O2SAT 97
[2023-01-06] MEDS: Ensure Plus High Protein 120 ML LIQUID PO (17:59)
--- NOTE | 2023-01-06 19:15 | NURSING ---
pt asks to leave program at this time. states he feels well and has no desire to use at this time. advised to f/u with [facility] on monday. ama papers signed; totes unlocked so personal belongings could be retrieved. stated he has transportation prepared. thanked staff for their care.
== END 2023-01-06 19:30 | disposition left against medical advice (07) | DRG 770 ==
LOC: ED 15:08 → MS3 17:22
PROVIDERS: Physician Assistant; Admitting Provider Internal Medicine; Emergency Provider Emergency Medicine; PCP Nurse Practitioner Primary Care
DX: F11.23 Opioid dependence with withdrawal (principal); F17.210 Nicotine dependence, cigarettes, uncomplicated; F17.290 Nicotine dependence, other tobacco product, uncomplicated
CPT/HCPCS: 36415; 80048; 80307; 82077; 85025; 99283

== ENCOUNTER 2023-07-11 16:19 | Emergency (ER) | payer OTHER, SELFPAY ==
[2023-07-11 16:23] VITALS: BP 132/93; PULSE 107; RESP 18; TEMP 36.5; O2SAT 99; BMI 27.8
--- NOTE | 2023-07-11 17:27 | CM.ED ---
Social Work ASHISH informed by meter readers supervisor [facility] is boarding admits in ED. SW to follow up with patient to discuss alternative detox locations to better assist patient. SW met with patient and introduced self and role as [facility] SW. Patient was agreeable to speak with SW. SW informed patient of limited bed available and high wait time and inquired if patient was interested in discussing alternative detox locations with Treatment navigator. Patient agreeable, but inquired if they could assist with transportation. SW encouraged patient to ask [facility] as they sometimes have access to peer support to assist with transportation. Patient contacted Treatment navigator with [facility] and was encouraged to detox at [facility] or [facility]. [facility] reports no current ability to assist with transportation and then encouraged him to contact [facility] in [place] as they can assist with detox and transportation to their facility. Patient contacted [facility] and provided requested information for referral to their programs. Patient reports they do not have availability today, however, [facility] will contact him when they are able to assist. Patient reports his plan is to contact his grandmother for a ride to [facility] to detox. SW provided emotional support and encouragement. Patient remains in triage area as he is charging his phone and texting his grandmother. SW will continue to assist as needed. Itzel Forman MSW, EMILIANO
== END 2023-07-11 20:00 | disposition left against medical advice (07) ==
LOC: ED 23:03
PROVIDERS: PCP Nurse Practitioner Primary Care
DX: F11.23 Opioid dependence with withdrawal (principal)